=== PATIENT | male | born 1960 | race Caucasian/White ===

== ENCOUNTER → 2017-09-20 | Outpatient (CLI) | payer OTHER ==
--- NOTE | 2017-09-20 15:58 | 2DMMODE ---
[place] [address] 2 D/M-MODE ECHOCARDIOGRAM Name: RUSH CALDWELL Room: [facility]#: [id number] Admission: 09/20/17 Attend Phys: Physician not on s Discharge: Date of : 56 Date of Service: 09/20/17 1558 Report #: [id number] THIS REPORT FOR: //name// APPROVED REPORT Study performed: 09/20/2017 14:07:42 EXAM: Comprehensive 2D, Doppler, and color-flow Echocardiogram Patient Location: Out-Patient Status: routine BSA: 2.06 HR: 46 bpm BP: 120/85 mmHg Other Information Study Quality: Good Indications Ascending Aorta Dilatation 2D Dimensions LVEF(%): 66.70 (>50%) IVSd: 11.68 (7-11mm) LVOT Diam: 21.35 (18-24mm) LVDd: 50.98 mm PWd: 11.68 (7-11mm) Ascending Ao: 41.90 (22-36mm) LVDs: 32.08 (25-40mm) Aortic Root: 29.84 mm Lopez's LVEF: 66.70 % Volumes Left Atrial Volume (Systole) LA ESV Index: 25.00 mL/m2 Aortic Valve AoV Peak Aniket.: 1.05 m/s AO Peak Gr.: 4.42 mmHg LVOT Max P.44 mmHg AO Mean Gr.: 2.59 mmHg LVOT Mean P.24 mmHg LVOT Max V: 0.78 m/s AO V2 VTI: 24.79 cm LVOT Mean V: 0.51 m/s HEMAL (VTI): 2.68 cm2 LVOT V1 VTI: 18.59 cm Mitral Valve E/A Ratio: 1.20 MV Decel. Time: 234.13 [place] [address] 2 D/M-MODE ECHOCARDIOGRAM Name: RUSH CALDWELL Room: [facility]#: [id number] Admission: 09/20/17 Attend Phys: Physician not on s Discharge: Date of : 56 Date of Service: 09/20/17 1558 Report #: [id number] MV E Max Aniket.: 0.51 m/s MV PHT: 67.90 ms MVA (PHT): 3.24 cm2 TDI E/Lateral E': 3.92 E/Medial E': 7.29 Medial E' Aniket.: 0.07 m/s Lateral E' Aniket.: 0.13 m/s Pulmonary Valve PV Peak Aniket.: 0.79 m/s PV Peak Gr.: 2.51 mmHg Tricuspid Valve TR Peak Gr.: 14.17 mmHg RVSP: 19.17 mmHg Left Ventricle The left ventricle is normal size. There is normal LV segmental wall motion. There is normal left ventricular wall thickness. Left ventricular systolic function is normal. LVEF is 55-60%. The left ventricular diastolic function is normal. Right Ventricle The right ventricle is normal size. The right ventricular systolic function is normal. Atria The left atrium size is normal. The right atrium size is normal. Aortic Valve The aortic valve is normal in structure. No aortic regurgitation is present. There is no aortic valvular stenosis. Mitral Valve The mitral valve is normal in structure. Mild mitral regurgitation. No evidence of mitral valve stenosis. Tricuspid Valve The tricuspid valve is normal in structure. Trace tricuspid regurgitation. The RVSP is _19 mmHg. Pulmonic Valve The pulmonary valve is normal in structure. Mild pulmonic [place]itation[place] [address] 2 D/M-MODE ECHOCARDIOGRAM Name: RUSH CALDWELL Room: [facility]#: [id number] Admission: 09/20/17 Attend Phys: Physician not on s Discharge: Date of : 56 Date of Service: 09/20/17 1558 Report #: [id number] The aortic root is normal in size. The ascending aorta is mildly dilated and measures approximately 4.3 cm in diameter in greatest dimension. IVC is normal in size and collapses with >50% inspiration Pericardium There is no pericardial effusion. <Conclusion> The left ventricle is normal size. There is normal left ventricular wall thickness. Left ventricular systolic function is normal. LVEF is 55-60%. The left ventricular diastolic function is normal. Mild mitral regurgitation. Trace tricuspid regurgitation. The RVSP is _19 mmHg. IVC is normal in size and collapses with >50% inspiration The ascending aorta is mildly dilated and measures approximately 4.3 cm in diameter in greatest dimension. <ELECTRONICALLY SIGNED> By: Rodolfo Alexandre MD, FACC 09/20/17 1558 1558 1558 Rodolfo Alexandre MD, FACC /INF
== END ==
LOC: M.CRD 13:47
DX: I34.0 Nonrheumatic mitral (valve) insufficiency (principal); I77.819 Aortic ectasia, unspecified site; I37.1 Nonrheumatic pulmonary valve insufficiency